=== PATIENT | female | born 1970 | race Caucasian/White ===

== ENCOUNTER 2020-09-03 09:47 | Emergency (ER) | payer BC, OTHER ==
[2020-09-03] MEDS ORDERED: ROPIVACAINE 0.5% PF 20 ML AMPULE SUBQ STA (10:05)
[2020-09-03] MEDS ORDERED: LIDOCAINE 1%-EPI 1:100000 20 ML MDV SUBQ STA (10:05)
--- NOTE | 2020-09-03 10:06 | ED Physician Documentation ---
PD HPI LOWER EXT INJURY - Stated complaint Stated Complaint: LEFT KNEE PX - Chief complaint Chief Complaint: Ext Problem - History obtained from History obtained from: Patient - Additional information Additional information: About 2 weeks ago at work she started to develop knee pain. There was no specific injury, but pain is at times intolerable and takes her breath away although she is not short of breath per se. She is developed some bruising to the medial side of the knee and there certainly is some pain mostly medial and anterior that is worse with flexion of the knee. She is never had trouble with that knee before. No primary health problems. Review of Systems Ten Systems: 10 systems reviewed and negative Constitutional: reports: Reviewed and negative Eyes: reports: Reviewed and negative Ears: reports: Reviewed and negative Nose: reports: Reviewed and negative Throat: reports: Reviewed and negative PD PAST MEDICAL HISTORY - Past Surgical History Past Surgical History: No - Present Medications Home Medications: Ambulatory Orders Medication Instructions Recorded Confirmed HYDROcod/ACETAM 5/325 [Ely 5/325] 1 - 2 tab PO Q6H PRN #20 tablet 09/03/20 Omeprazole 40 mg PO DAILY #30 cap 09/03/20 - Allergies Allergies/Adverse Reactions: Allergies Allergy/AdvReac Type Severity Reaction Status Date / Time shellfish derived Allergy Edema Verified 09/03/20 10:00 - Social History Does the pt smoke?: No Smoking Status: Never smoker Does the pt drink ETOH?: No Does the pt have substance abuse?: No - Immunizations Immunizations are current?: Yes - POLST Patient has POLST: No PD ED PE NORMAL - Vitals Vital signs reviewed: Yes - General General: Alert and oriented X 3, No acute distress - HEENT HEENT: PERRL, EOMI - Neck Neck: Supple, no meningeal sign, No bony TTP - Extremities Extremities: Other (There is an effusion of the left knee, no warmth or redness. No prepatellar bursitis. She has pain with flexion of the knee. There is bruising on the medial surface of the knee joint. Mild calf tenderness and popliteal tenderness as well.) - Neuro Neuro: Alert and oriented X 3, Normal speech Results - Vitals Vitals: Vital Signs - 24 hr 09/03/20 09/03/20 09:57 14:44 Temperature 36.0 C L 36.8 C Heart Rate 108 H 82 Respiratory 12 18 Rate Blood Pressure 180/93 H 158/89 H O2 Saturation 100 98 Oxygen O2 Source Room air - Labs Labs: Microbiology 09/03/20 10:40 Body Fluid Culture - Preliminary Synovial Fluid Laboratory Tests 09/03/20 09/03/20 10:40 10:40 Fluid Source SYNOVIAL Fluid Color YELLOW Fluid Clarity CLEAR Fluid WBC 600 Fluid RBC < 3000 Fluid Neutrophils % 28 Fluid Lymphocytes % 72 Fluid Crystals NONE SEEN - Rads (name of study) L knee 3v Radiology: EMP read contemporaneously (OA) Procedures - Arthrocentesis Joint: Knee, Left Preparation: Consent obtained, Sterile prep and drape Anesthesia: Lidocaine 1% Fluid: Clear, Sent for cell count Aftercare: Patient tolerated well (injected 5ml ropivacaine 0.5%) PD MEDICAL DECISION MAKING - ED course ED course: 49-year-old woman who developed pain at work 2 weeks ago of her left knee which is now debilitating. She has an effusion on exam and this was drained and 5ml of 0.5% ropivacaine was instilled with modest pain relief. Cytology and cell count from the fluid is negative. This was followed by an MRI showing: IMPRESSION: 1. Small knee joint effusion and trace Ramírez's cyst. 2. Degenerative marrow edema versus contusion within the medial femoral condyle and medial tibial plateau. Next line 3. Quadriceps and patellar tendinopathy. 4. Complex tearing of the medial meniscus. 5. MCL strain. She plans to follow-up with Dr. Alex Meyers and I texted him as he is scheduled out quite a ways and he will try to squeeze her into his clinic schedule. Departure - Departure Disposition: 01 Home, Self Care Clinical Impression: Medial meniscus tear Qualifiers: Tear current or old: current Encounter type: initial encounter Meniscus tear of knee type: complex Laterality: left Qualified Code(s): S83.232A - Complex tear of medial meniscus, current injury, left knee, initial encounter Condition: Good Record reviewed to determine appropriate education?: Yes Instructions: ED Meniscal Injury Knee Poss Follow-Up: Alex Meyers DO [Physician No Access] - Prescriptions: HYDROcod/ACETAM 5/325 [Ely 5/325] 1 - 2 tab PO Q6H PRN #20 tablet PRN Reason: Pain Omeprazole 40 mg PO DAILY #30 cap Comments: I am prescribing a short course of narcotic pain medication for you. These are potentially dangerous and addictive medications that should be used carefully. These medications may constipate you. Take an npqb-uts-qagsqbl stool softener (docusate) twice daily with plenty of water while taking these medications. If you go 24 hours without a bowel movement, take bxep-ntu-xwugofa miralax, per package instructions. Do not drink or drive while taking these medications. If you received narcotic or sedating medications while in the emergency department, do not drive for 24 hours. Store this medication in a safe, secure place and out of reach of children. It is a violation of federal law to give or sell this medication to another person or to use in a manner other than prescribed. The ED will not refill narcotic prescriptions, including prescriptions lost or stolen. To dispose of unwanted medications: 1. [facility] [address] in [place] has a medication drop box. They accept prescription medications (in pill form) Tuesday through Tuesday 9:00 a.m. to 5:00 p.m. 2. The [facility] [employer] accepts prescription medications (in pill form only) for disposal year round. Call for more information. 3. Contact the [facility] for the next [facility] sponsored prescription drug collection event. , [phone], or [phone]; Note that many narcotic pain relievers also contain Tylenol/acetaminophen. Please ensure that your total dose of acetaminophen from all sources does not exceed 3 g (3000 mg) per day. Forms: Activity restrictions Discharge Date/Time: 09/03/20 14:43
--- NOTE | 2020-09-03 10:26 | XRAY Report ---
PROCEDURE: Knee 3 View LT INDICATIONS: knee pain TECHNIQUE: 3 views of the left knee(s) were acquired. COMPARISON: None. FINDINGS: Bones: No fractures or dislocations. No suspicious bony lesions. Mild tricompartmental periarticul ar osteophyte formation. Soft tissues: No joint effusion. No suspicious soft tissue calcifications. IMPRESSION: Osteoarthritis. No acute fracture. No osseous lesion. If symptoms and/or clinical suspici on for pathology continue, further assessment with repeat plain films, or advanced imaging (e.g., CT, MRI, or bone scan) is recommended for further assessment. Reviewed by: Sera Trevino MD on 09/03/2020 10:25 AM PDT Approved by: Sera Trevino MD on 09/03/2020 10:25 AM PDT Station ID: [id number]
[2020-09-03 11:11] LABS: BF CLARITY CLEAR; BF COLOR YELLOW; BF SOURCE SYNOVIAL; CC,BF RBC < 3000 /mm^3; CC,BF WBC 600 /mm^3
--- NOTE | 2020-09-03 11:38 | Ultrasound Report ---
PROCEDURE: Duplex Ext Veins Left INDICATIONS: leg pain TECHNIQUE: Real-time imaging, as well as color and pulse Doppler interrogation, were performed of the lower extr emity deep veins from the inguinal ligament to the popliteal fossa. COMPARISON: None. FINDINGS: The deep veins are normally compressible, and free of intraluminal thrombus. Color and pu lse Doppler demonstrate normal phasic intraluminal flow. There is normal augmentation response to di stal compression maneuver. IMPRESSION: No evidence of deep vein thrombosis involving the left lower extremity. Reviewed by: Kaylen Saha MD, PhD on 09/03/2020 11:37 AM PDT Approved by: Kaylen Saha MD, PhD on 09/03/2020 11:37 AM PDT Station ID: [id number]
[2020-09-03 11:42] LABS: LYMPHOCYTES %,BODY FLUID 72 %; NEUTROPHILS %, BF 28 %
[2020-09-03] MEDS ORDERED: KETOROLAC 60 MG/2 ML VIAL IM STA (11:49)
--- NOTE | 2020-09-03 13:55 | MRI Report ---
PROCEDURE: Knee LT W/O INDICATIONS: knee pain and effusion TECHNIQUE: Noncontrast sagittal PD fast spin echo and T2 fast spin echo with fat saturation, sagittal 3-D gradie nt sequence with fat saturation; coronal T1 spin echo and PD fast spin echo with fat saturation, and axial PD fast spin echo with fat saturation through the knee. COMPARISON: Knee MRI dated 09/03/2020 FINDINGS: Image quality: Excellent. Menisci: Linear and amorphous high signal intensity within the medial meniscal body and posterior hor n is present demonstrating inferior articular surface extension, indicating complex tearing. Lateral meniscus is intact. Cruciate ligaments: The anterior and posterior cruciate ligaments appear intact. Medial structures: The medial collateral ligament appears intact, but demonstrates mild surrounding T2 signal elevation. Visualized portions of the pes anserinus tendons appear normal. No abnormal bur russ fluid. Lateral structures: The lateral collateral ligament, long and short heads of the biceps femoris tend on appear intact. The popliteus tendon appears normal. Iliotibial band appears normal. Anterior structures: The quadriceps and patellar tendons appear intact. There is mild T2 signal elev ation within the quadriceps and patellar tendons at the patellar insertion sites. Patellar alignment is normal. No femoral trochlear dysplasia or ventral trochlear prominence. Mild edema in the infrapa tellar fat pad. Bones and cartilage: No displaced fracture. There is mild subchondral ill-defined STIR signal elevat ion within the mid and anterior weightbearing aspects of the medial femoral condyle, and within the a nterior, mid, and posterior weightbearing aspects of the medial tibial plateau. There is moderate tri compartment periarticular osteophyte formation. Severe articular cartilage loss diffusely overlies th e weightbearing aspects of the medial femoral condyle and medial tibial plateau. Joint space: There is a small knee joint effusion and a small Ramírez?s cyst. Normal appearing synovi al plicae are incidentally noted. IMPRESSION: 1. Small knee joint effusion and trace Ramírez's cyst. 2. Degenerative marrow edema versus contusion within the medial femoral condyle and medial tibial yassine teau. Next line 3. Quadriceps and patellar tendinopathy. 4. Complex tearing of the medial meniscus. 5. MCL strain. Reviewed by: Sera Trevino MD on 09/03/2020 1:54 PM PDT Approved by: Sera Trevino MD on 09/03/2020 1:54 PM PDT Station ID: [id number]
[2020-09-03 15:00] VITALS: BP 158/89
== END 2020-09-03 14:43 | disposition home or self-care (01) ==
LOC: ED 09:47
DX: S83.232A Complex tear of medial meniscus, current injury, left knee, initial encounter (principal); S86.812A Strain of other muscle(s) and tendon(s) at lower leg level, left leg, initial encounter; X58.XXXA Exposure to other specified factors, initial encounter; Y99.0 Civilian activity done for income or pay; M25.462 Effusion, left knee; M17.12 Unilateral primary osteoarthritis, left knee; M71.22 Synovial cyst of popliteal space [Baker], left knee
CPT/HCPCS: 20610; 87070; 87205; 89051; 89060